=== PATIENT | male | born 1950 | race Caucasian/White ===

== ENCOUNTER → 2017-02-22 | Day surgery (SDC) | payer OTHER ==
[~2017-02-22] VITALS: Ht 177.8 cm; Wt 107.4 kg
[~2017-02-22] MED LIST: *morphine SULFATE 8 MG/ML PERIprocedure ONLY ONE; ACETAMINOPHEN 1000 MG/100 ML 100 ML IV ONE; ACETAMINOPHEN/HYDROcodone 325 MG/7.5 MG TAB PO PRN; ALLO300T2 PO; BACITRACIN TOP OINT 15 GM TUBE ONE; BUPIVACAINE/EPINEPHRINE 0.25% PF 30 ML VIAL ONE; CHLORHEXIDINE GLUCONATE 2 % 1 PACK (2 CLOTHS) TOPICAL PRN; CITA20TA4 PO; DEXAMETHASONE SOD PHOS 4 MG/ML VIAL IV ONE; DO NOT ADM ANY ANTICOAGULANT DRUGS PRN; GLYCOPYRROLATE 1 MG/5 ML SYRINGE IV PUSH ONE; IBUP-232 PO; KETOROLAC TROMETHAMINE 30 MG/ML (IVP) VIAL IV PUSH ONE; LACTATED RINGER'S 1000 ML INJ 1,000 ML IV ONE; LACTATED RINGER'S 1000 ML IV PRN; LIDOCAINE HCL 1% PF 5 ML SYRINGE OTHER ONE; LISI-515 PO; MEPERIDINE HCL 25 MG/ML VIAL ONE; METOPROLOL TARTRATE 25 MG TAB PO PRN; MORPHINE SULFATE 4 MG/ML INJ IV PRN; NEOSTIGMINE 3 MG/3 ML SYR IV ONE; ONDANSETRON HCL 4 MG/2 ML VIAL IV PUSH ONE; ONDANSETRON HCL 4 MG/2 ML VIAL IV PUSH PRN; PANT20TA2 PO; PHENYLEPH/NS 1000 MCG/10 ML SYR IV ONE; POVIDONE IODINE 5% (ANTISEPSIS KIT) 4 APPLICATIONS EACH NARE PRN; PROPOFOL 200 MG/20 ML AMP IV ONE; ROCURONIUM INJ 50 MG/5 ML SYRINGE IV PUSH ONE; SODIUM CHLORID 0.9% 500 ML IV PRN; ePHEDrine/NS 25 MG/5 ML SYR IV ONE
[2017-02-22] MEDS: ceFAZolin 1,000 MG/NS 100 ML IV SCH ×4 (14:40→14:47)
--- NOTE | 2017-02-22 17:27 | TN ---
cc: JELENA MANCIA M.D. DATE OF SURGERY 02/22/2017 PREOPERATIVE DIAGNOSIS Symptomatic enlarging supraumbilical hernia. POSTOPERATIVE DIAGNOSIS Symptomatic enlarging supraumbilical hernia. PROCEDURE PERFORMED Supraumbilical hernia repair with mesh. SURGEON Jelena Mancia MD ANESTHESIA General endotracheal. COMPLICATIONS None INDICATION FOR THE PROCEDURE Mr. Sánchez is a very pleasant 66-year-old gentleman who noticed a bulge in the supraumbilical space. It was getting bigger and causing him discomfort. He has seen and evaluated in the office and found to have a supraumbilical hernia with likely chronically incarcerated fat. He was advised to undergo repair. Risks and benefits of repair with mesh was discussed with him. He was agreeable. DETAILS OF PROCEDURE The patient was identified, brought to the operating room and placed supine on the operating table. After adequate general anesthesia was achieved the abdomen was prepped and draped in standard surgical fashion. Supraumbilical space anesthetized with 0.25% Marcaine. Supraumbilical incision was made. Dissection was carried down to the subcutaneous tissue immediately identifying the hernia sac. Hernia sac was dissected from surrounding fat circumferentially. The hernia sac was then followed down to its neck where the fascial defect was identified. Fascial defect was cleaned off circumferentially. Hernia was then reduced back into the abdominal cavity without any difficulty. Primary repair was initiated using a 0 Prolene suture interrupted x2. With this the defect was completely closed. It should be noted the defect was about 1-2 cm and came together easily. We elected to do an onlay mesh due to the patient's obesity. Fascia was cleaned off about 1-2 cm circumferentially from the primary defect. Four 2-0 Prolene sutures were placed in the four corners. An onlay mesh was then placed down on top of the repair and secured with the four corner sutures. With this the defect was completely covered in two layers with generous mesh overlap over the primary repair. 0.25% Marcaine was injected in the fascia circumferentially. Wound was copiously irrigated with normal saline solution. Wound was then closed in two layers using 3-0 and 4-0 Vicryl. Sterile dressings were applied. The patient was awakened, brought to recovery in stable condition. MD JULEE Deutsch/LYNDSEY /4:09 PM /5:09 PM
[2017-02-22 18:45] VITALS: BP 116/75; PULSE 90; RESP 16; TEMP 97.6; O2SAT 96
--- NOTE | 2017-02-23 14:40 | EKG ---
Date Performed: 02/22/2017 Time Performed: 13:54:26 PTAGE: 66 years EKG: Sinus rhythm PATTERN CONSISTENT WITH PULMONARY DISEASE LEFT ANTERIOR FASCICULAR BLOCK ABNORMAL ECG Compared to pr ior tracing no significant change PREVIOUS TRACING : 02/18/2007 13.51 DOCTOR: Vanna Hopkins Interpretating Date/Time 02/23/2017 14:35:20
== END | disposition home or self-care (01) ==
LOC: HSDC 11:21
PROVIDERS: ATTEND Surgery Trauma Surgery
DX: K42.9 Umbilical hernia without obstruction or gangrene (principal); K21.9 Gastro-esophageal reflux disease without esophagitis; R10.9 Unspecified abdominal pain; I10 Essential (primary) hypertension; Z01.810 Encounter for preprocedural cardiovascular examination
CPT/HCPCS: 00832; 49585; 93005; C1781; J0131; J0690; J2175; J2270; J7120; J1100; J1885; J2370; J2405; J2710; J3010